=== PATIENT | female | born 1990 | race African-American/Black ===

== ENCOUNTER 2017-09-27 19:52 | Emergency (ER) | payer SELFPAY ==
[2017-09-27] MEDS ORDERED: Ibuprofen 800 MG TAB ONE (22:00)
== END 2017-09-28 00:23 | disposition home or self-care (01) ==
LOC: EDBD 19:52 → ERS 19:52
DX: J01.90 Acute sinusitis, unspecified (principal); F41.9 Anxiety disorder, unspecified; F32.9 Major depressive disorder, single episode, unspecified; F17.210 Nicotine dependence, cigarettes, uncomplicated
CPT/HCPCS: 99283

== ENCOUNTER 2017-10-20 10:46 | Emergency (ER) | payer SELFPAY ==
[2017-10-20 12:27] LABS: Bilirubin Negative (Negative); Blood, Urine Negative (Negative); Clarity CLEAR (Clear); Glucose, Urine (Dipstick) Negative (Negative); Leukocyte Negative (Negative); Nitrite Negative (Negative); Protein, Urine (Dipstick) Negative (Neg-Trace); Specific Gravity, Urine 1.024 (1.002-1.036); Urobilinogen 0.2 mg/dL (0.2-1.0); pH, Urine 6.5 (5.0-9.0)
--- NOTE | 2017-10-20 12:46 | RAD ---
FOUR VIEW RIGHT KNEE: Indication: Chronic pain. FINDINGS: No fracture or dislocation. No joint capsular distention. IMPRESSION: No acute osseous abnormality of the right knee. POS: [facility] [place]
== END 2017-10-20 13:02 | disposition home or self-care (01) ==
LOC: ERS 10:46
DX: S39.012A Strain of muscle, fascia and tendon of lower back, initial encounter (principal); S80.01XA Contusion of right knee, initial encounter; F41.9 Anxiety disorder, unspecified; F32.9 Major depressive disorder, single episode, unspecified; F17.210 Nicotine dependence, cigarettes, uncomplicated; W17.89XA Other fall from one level to another, initial encounter
CPT/HCPCS: 81003

== ENCOUNTER 2018-01-17 14:04 | Emergency (ER) | payer SELFPAY ==
[2018-01-17] MEDS ORDERED: Silver Sulfadiazine 1% Cream 50 GM JAR ONE (14:36)
== END 2018-01-17 14:45 | disposition home or self-care (01) ==
LOC: ERS 14:04
DX: T22.211A Burn of second degree of right forearm, initial encounter (principal); X12.XXXA Contact with other hot fluids, initial encounter
CPT/HCPCS: 99283

== ENCOUNTER 2019-05-25 14:08 | Emergency (ER) | payer SELFPAY | END 2019-05-25 15:20 | disposition home or self-care (01) | LOC: ERS 14:08 | DX: J30.9 Allergic rhinitis, unspecified (principal); Z71.6 Tobacco abuse counseling; F17.210 Nicotine dependence, cigarettes, uncomplicated; F32.9 Major depressive disorder, single episode, unspecified; F41.9 Anxiety disorder, unspecified | CPT/HCPCS: 99406 ==

== ENCOUNTER 2019-09-30 14:39 | Emergency (ER) | payer SELFPAY ==
[2019-09-30 15:18] LABS: Bilirubin Negative (Negative); Blood, Urine 2+ (Negative); Clarity Turbid (Clear); Glucose, Urine (Dipstick) Normal (Negative); Leukocyte 500 Leu/uL (Negative); Nitrite Negative (Negative); Protein, Urine (Dipstick) 50 mg/dL (Neg-Trace); Transitional Epithelial 0-3 HPF (None Seen); Urobilinogen Normal mg/dL (Less than 2); WBC/HPF Greater than 50 HPF (0-3)
[2019-09-30 15:20] LABS: Pregnancy Test - Urine (BHCG) Negative (Negative); Pregu Control Background? CLEAR/WHITE (CLR/WHITE); Pregu Control Bar Appear? YES (CONTROL BAR)
[2019-09-30 15:31] LABS: Bacteria/HPF 3+ HPF (None Seen)
[2019-09-30 15:56] LABS: Hemoglobin 14.7 g/dL (12.0-16.0); Mean Corpuscular HGB CONC 33.7 g/dL (32.0-36.0); Mean Corpuscular Hemoglobin 31.4 pg (27.0-31.0); Mean Corpuscular Volume 93.2 fL (78.0-98.0); Mean Platelet Volume 7.6 fL (7.4-10.4); Platelet Count 317 thou/uL (130-400); RBC Distribution Width 12.1 % (11.5-14.5); Red Blood Cell (RBC) Count 4.68 mill/uL (4.20-5.40)
[2019-09-30 16:09] LABS: Band 2 % (5-11); Lymphocytes 21 % (21-51); MDiff Complete? YES; Monocytes 6 % (0-10); Neutrophil 71 % (42-75); Platelet Morphology Comment Appears Adequate; RBC Morphology Normal
[2019-09-30 16:13] LABS: ALT (SGPT) 24 U/L (8-55); AST (SGOT) 16 U/L (5-34); Albumin 4.4 g/dL (3.5-5.0); Alkaline Phosphatase 65 U/L (40-110); Anion Gap 12 mmol/L (10-20); BUN (Urea Nitrogen) 14 mg/dL (7.0-18.7); Bilirubin, Total 0.4 mg/dL (0.2-1.2); Calc. Creatinine Clearance 0 mL/min (70-130); Calcium 9.5 mg/dL (7.8-10.44); Carbon Dioxide 26 mmol/L (22-29); Chloride 105 mmol/L (98-107); Estimated GFR-MDRD Greater than 90; Globulin 3.3 g/dL (2.4-3.5); Glucose 79 mg/dL (70-105); Lipase 38 U/L (8-78); Potassium 3.9 mmol/L (3.5-5.1); Protein, Total 7.7 g/dL (6.0-8.3); Sodium 139 mmol/L (136-145)
[2019-09-30] MEDS ORDERED: cefTRIAXone\\ROCEPHIN 2 GM VIAL ONE (16:22)
--- NOTE | 2019-09-30 18:08 | CT ---
CT of abdomen and pelvis: 09/30/2019 COMPARISON: None HISTORY: Right lower quadrant pain, elevated white blood cell count TECHNIQUE: Axial CT imaging at 5 mm intervals from lung bases through pubic symphysis with IV contras t. Coronal and sagittal reformatted imaging obtained. FINDINGS: The lack of oral contrast media limits assessment of the bowel. The imaged lung bases are u nremarkable. No free intraperitoneal air. The liver, spleen, pancreas, gallbladder, adrenal glands, and kidneys demonstrate no acute findings. Nonobstructing lower pole right renal stone noted anteriorly measuring approximately 3 mm. There is nonspecific small volume free fluid within the pelvic cul-de-sac. Imaged portions of the appendix appear grossly unremarkable. No focal area of bowel inflammatory change. No evidence for bowel obstruction. The urinary bladder wall demonstrates thickening and enhancement. Findings may signify cystitis in th e proper clinical setting. Correlation with urinalysis advised. The vascular structures of the abdomen/pelvis appear patent. No acute osseous abnormality. IMPRESSION: Thickening of the urinary bladder wall suspicious for cystitis. No evidence for appendici tis.
== END 2019-09-30 18:56 | disposition home or self-care (01) ==
LOC: ERS 14:39
DX: N30.90 Cystitis, unspecified without hematuria (principal); J45.909 Unspecified asthma, uncomplicated; F17.210 Nicotine dependence, cigarettes, uncomplicated; D57.1 Sickle-cell disease without crisis; F41.9 Anxiety disorder, unspecified; F32.9 Major depressive disorder, single episode, unspecified
CPT/HCPCS: 36415; 74177; 80053; 81003; 81015; 81025; 83690; 85025; 96361; 96365; J0696

== ENCOUNTER 2019-10-21 07:51 | Emergency (ER) | payer SELFPAY | END 2019-10-21 08:17 | disposition home or self-care (01) | LOC: ERS 07:51 | DX: K04.7 Periapical abscess without sinus (principal); F41.9 Anxiety disorder, unspecified; F32.9 Major depressive disorder, single episode, unspecified; J45.909 Unspecified asthma, uncomplicated; D57.1 Sickle-cell disease without crisis; F17.210 Nicotine dependence, cigarettes, uncomplicated | CPT/HCPCS: 99282 ==

== ENCOUNTER 2019-10-23 02:15 | Emergency (ER) | payer SELFPAY ==
[2019-10-23] MEDS ORDERED: HYDROcodone/Acetaminophen 5/325 mg Tablet ONE (02:59)
== END 2019-10-23 03:37 | disposition home or self-care (01) ==
LOC: ERS 02:15
DX: K00.6 Disturbances in tooth eruption (principal); J45.909 Unspecified asthma, uncomplicated; D57.1 Sickle-cell disease without crisis; F41.9 Anxiety disorder, unspecified; F32.9 Major depressive disorder, single episode, unspecified; F17.210 Nicotine dependence, cigarettes, uncomplicated; Z79.891 Long term (current) use of opiate analgesic; Z79.899 Other long term (current) drug therapy
CPT/HCPCS: 99283

== ENCOUNTER 2020-04-11 18:11 | Emergency (ER) | payer SELFPAY | END 2020-04-11 20:13 | disposition left against medical advice (07) | LOC: ERS 18:11 | DX: Z53.21 Procedure and treatment not carried out due to patient leaving prior to being seen by health care provider (principal) ==

== ENCOUNTER 2023-09-08 10:27 | Emergency (ER) | payer SELFPAY ==
[2023-09-08 11:29] LABS: #Eosinphils 0.3 thou/uL (0.0-0.7); %Basophils 0.3 % (0.0-1.0); %Eosinophils 2.3 % (0.0-10.0); %Lymphocytes 27.2 % (21.0-51.0); %Monocytes 7.2 % (0.0-10.0); %Neutrophils 62.8 % (42.0-75.0); Hematocrit 38.2 % (36.0-47.0); Hemoglobin 12.8 g/dL (12.0-16.0); Mean Corpuscular HGB CONC 33.5 g/dL (32.0-36.0); Mean Corpuscular Hemoglobin 30.5 pg (27.0-31.0); Mean Platelet Volume 9.4 fL (7.4-10.4); Platelet Count 321 10x3/uL (130-400); White Blood Cell (WBC) Count 14.3 10x3/uL (4.8-10.8)
[2023-09-08 11:52] LABS: ALT (SGPT) 25 U/L (8-55); AST (SGOT) 24 U/L (5-34); Albumin 3.9 g/dL (3.5-5.0); Alkaline Phosphatase 60 U/L (40-110); Anion Gap 13 mmol/L (10-20); BUN (Urea Nitrogen) 10 mg/dL (7.0-18.7); Bilirubin, Total 0.3 mg/dL (0.2-1.2); Calc. Creatinine Clearance 0 mL/min (70-130); Calcium 9.1 mg/dL (7.8-10.44); Carbon Dioxide 21 mmol/L (22-29); Chloride 108 mmol/L (98-107); Estimated GFR 120; Globulin 3.1 g/dL (2.4-3.5); Glucose 90 mg/dL (70-105); Potassium 3.9 mmol/L (3.5-5.1); Sodium 138 mmol/L (136-145)
[2023-09-08] MEDS ORDERED: Ondansetron ODT 4 MG TAB ONE (12:00)
[2023-09-08] MEDS ORDERED: Milk Of Magnesia 30 ML UDCUP ONE (12:00)
[2023-09-08 12:21] LABS: BHCG - Serum Negative (NEGATIVE); Pregs Control Background? CLEAR/WHITE (CLR/WHITE); Pregs Control Bar Appear? YES (CONTROL BAR)
== END 2023-09-08 13:45 | disposition home or self-care (01) ==
LOC: ERS 10:27
DX: K59.00 Constipation, unspecified (principal); R11.2 Nausea with vomiting, unspecified; F17.210 Nicotine dependence, cigarettes, uncomplicated
CPT/HCPCS: 36415; 80053; 83690; 84703; 85025; 99284; Q0162

== ENCOUNTER 2023-10-23 19:30 | Inpatient (IN) | payer SELFPAY ==
[2023-10-23] MEDS ORDERED: Ketorolac Tromethamine 30 MG (1 mL) VIAL ONE (20:16)
[2023-10-23 20:49] LABS: Bacteria/HPF None Seen HPF (None Seen); Bilirubin Negative (Negative); Blood, Urine 1+ (Negative); CAUTI Indications for Culture Acute Hematuria; Clarity Extra Turbid (Clear); Glucose, Urine (Dipstick) Normal (Negative); Ketone, Urine Negative (Negative); Leukocyte Negative Leu/uL (Negative); Nitrite Negative (Negative); Protein, Urine (Dipstick) Negative (Neg-Trace); RBC/HPF None Seen HPF (0-3); Specific Gravity, Urine 1.016 (1.002-1.036); Urobilinogen Normal mg/dL (Less than 2); WBC/HPF None Seen HPF (0-3); pH, Urine 7.5 (5.0-9.0)
[2023-10-23 20:51] LABS: Pregnancy Test - Urine (BHCG) Negative (Negative); Pregu Control Background? CLEAR/WHITE (CLR/WHITE); Pregu Control Bar Appear? YES (CONTROL BAR); Specific Gravity 1.016 (1.002-1.036); Urine Culture Reflex No No
[2023-10-23] MEDS ORDERED: Dicyclomine 20 MG TAB ONE (21:28)
[2023-10-23 21:59] LABS: #Basophils 0.1 thou/uL (0.0-0.2); #Eosinphils 0.1 thou/uL (0.0-0.7); #Neutrophils 17.4 thou/uL (1.40-6.50); %Basophils 0.3 % (0.0-1.0); %Eosinophils 0.6 % (0.0-10.0); %Lymphocytes 13.9 % (21.0-51.0); %Monocytes 4.6 % (0.0-10.0); %Neutrophils 80.1 % (42.0-75.0); Hemoglobin 13.5 g/dL (12.0-16.0); Mean Corpuscular HGB CONC 33.8 g/dL (32.0-36.0); Mean Corpuscular Hemoglobin 30.5 pg (27.0-31.0); Mean Corpuscular Volume 90.5 fl (78.0-98.0); Platelet Count 390 10x3/uL (130-400); RBC Distribution Width 14.7 % (11.5-14.5); Red Blood Cell (RBC) Count 4.42 mill/uL (4.20-5.40); White Blood Cell (WBC) Count 21.7 10x3/uL (4.8-10.8)
[2023-10-23 22:27] LABS: ALT (SGPT) 34 U/L (8-55); AST (SGOT) 24 U/L (5-34); Albumin 3.9 g/dL (3.5-5.0); Alkaline Phosphatase 54 U/L (40-110); Anion Gap 11 mmol/L (10-20); BUN (Urea Nitrogen) 8 mg/dL (7.0-18.7); Bilirubin, Total 0.3 mg/dL (0.2-1.2); Calc. Creatinine Clearance 0 mL/min (70-130); Carbon Dioxide 26 mmol/L (22-29); Chloride 105 mmol/L (98-107); Estimated GFR 120; Globulin 2.7 g/dL (2.4-3.5); Glucose 81 mg/dL (70-105); Lipase 42 U/L (8-78); Potassium 4.1 mmol/L (3.5-5.1); Protein, Total 6.6 g/dL (6.0-8.3); Sodium 138 mmol/L (136-145)
[2023-10-24 03:26] VITALS: BMI 32.8
[2023-10-24] MEDS ORDERED: Sodium Chloride 0.9% 1,000 ML IV SCH (03:45)
[2023-10-24] MEDS ORDERED: Morphine 2 MG/ML VIAL SLOW IVP PRN (03:59)
[2023-10-24] MEDS ORDERED: Morphine 4 MG/ML VIAL SLOW IVP PRN (04:00)
[2023-10-24] MEDS ORDERED: Ondansetron PF 4 MG/2 ML Vial IVP PRN (04:00)
[2023-10-24] MEDS: Sodium Chloride 0.9% 1,000 ML IV SCH ×2 (04:20→20:32)
[2023-10-24] MEDS ORDERED: Clindamycin/D5W 900 MG in Premix 1 BAG IVPB SCH (07:15)
[2023-10-24] MEDS ORDERED: Clindamycin/D5W 900 mg/50 ml Premix Bag ONE (07:50)
[2023-10-24] MEDS ORDERED: EPINEPHrine 1 MG/ML VIAL ONE (07:51)
[2023-10-24] MEDS ORDERED: Bupivacaine 0.25% HCL 30 ML VIAL ONE (07:51)
[2023-10-24] MEDS ORDERED: fentaNYL PF 100 MCG/2 ML SYRINGE ONE (08:03)
[2023-10-24] MEDS ORDERED: PROPOFOL 40 ML ONE (08:03)
[2023-10-24] MEDS ORDERED: Rocuronium Bromide 10 MG/ML (10ML VIAL) ONE (08:04)
[2023-10-24] MEDS ORDERED: Ondansetron PF 4 MG/2 ML Vial ONE (08:04)
[2023-10-24] MEDS ORDERED: Dexamethasone 20 MG/5 ML VIAL ONE (08:04)
[2023-10-24] MEDS ORDERED: Dexmedetomidine 200 MCG/2 ML VIAL ONE (08:09)
[2023-10-24] MEDS ORDERED: Promethazine HCl 25 MG/ML VIAL IM PRN (08:43)
[2023-10-24] MEDS ORDERED: Ondansetron HCl/PF 4 MG/2 ML Vial IVP PRN (08:43)
[2023-10-24] MEDS ORDERED: SUGAMMADEX SODIUM 200 MG/2 ML VIAL ONE (08:47)
[2023-10-24] MEDS ORDERED: Ketorolac Tromethamine 30 MG (1 mL) VIAL ONE (09:17)
[2023-10-24] MEDS: Polymyxin B Sulf/Trimethoprim 10 ML OPHTH DROPS L EYE SCH ×3 (14:03→20:44)
[2023-10-24] MEDS: Proparacaine 0.5% Opth 15 ML BOT L EYE PRN ×4 (14:04→22:37)
[2023-10-24] MEDS ORDERED: Ibuprofen 600 MG TAB PO PRN (18:28)
[2023-10-24] MEDS: traMADol HCl 50 MG TAB PO PRN (20:44)
[2023-10-25] MEDS: Ketorolac Tromethamine 30 MG (1 mL) VIAL IM PRN ×2 (00:02→10:44)
[2023-10-25] MEDS: Sodium Chloride 0.9% 1,000 ML IV SCH ×2 (00:04→10:25)
[2023-10-25 08:04] LABS: #Monocytes 1.8 thou/uL (0.11-0.59); #Neutrophils 16.1 thou/uL (1.40-6.50); %Basophils 0.2 % (0.0-1.0); %Eosinophils 0.1 % (0.0-10.0); %Lymphocytes 19.5 % (21.0-51.0); %Neutrophils 71.6 % (42.0-75.0); Hematocrit 33.4 % (36.0-47.0); Hemoglobin 11.3 g/dL (12.0-16.0); Mean Corpuscular HGB CONC 33.8 g/dL (32.0-36.0); Mean Corpuscular Hemoglobin 30.3 pg (27.0-31.0); Mean Corpuscular Volume 89.5 fl (78.0-98.0); Mean Platelet Volume 9.7 fL (7.4-10.4); Platelet Count 321 10x3/uL (130-400); RBC Distribution Width 14.7 % (11.5-14.5); Red Blood Cell (RBC) Count 3.73 mill/uL (4.20-5.40); White Blood Cell (WBC) Count 22.5 10x3/uL (4.8-10.8)
[2023-10-25 08:23] LABS: ALT (SGPT) 41 U/L (8-55); AST (SGOT) 34 U/L (5-34); Albumin 3.2 g/dL (3.5-5.0); Alkaline Phosphatase 44 U/L (40-110); Anion Gap 10 mmol/L (10-20); BUN (Urea Nitrogen) 9 mg/dL (7.0-18.7); Bilirubin, Total 0.3 mg/dL (0.2-1.2); Calc. Creatinine Clearance 157 mL/min (70-130); Calcium 8.4 mg/dL (7.8-10.44); Carbon Dioxide 21 mmol/L (22-29); Chloride 109 mmol/L (98-107); Estimated GFR 120; Globulin 2.1 g/dL (2.4-3.5); Glucose 81 mg/dL (70-105); Potassium 3.6 mmol/L (3.5-5.1); Protein, Total 5.3 g/dL (6.0-8.3); Sodium 136 mmol/L (136-145)
[2023-10-25] MEDS: traMADol HCl 50 MG TAB PO PRN (08:47)
[2023-10-25] MEDS: Polymyxin B Sulf/Trimethoprim 10 ML OPHTH DROPS L EYE SCH ×2 (08:48→13:31)
[2023-10-25 15:41] VITALS: BP 106/68; TEMP 97.6
[2023-10-25] MEDS: Proparacaine 0.5% Opth 15 ML BOT L EYE PRN (16:31)
== END 2023-10-25 16:45 | disposition home or self-care (01) | DRG 419 ==
LOC: ERS 19:30 → ERHOLD 23:26 → SURG A 10-24 03:11
PROVIDERS: ADMIT Surgery; ATTEND Surgery
PROC: 0FT44ZZ Resection of Gallbladder, Percutaneous Endoscopic Approach (ICD-10-PCS; principal; 2023-10-24)
DX: K80.00 Calculus of gallbladder with acute cholecystitis without obstruction (principal); Z88.5 Allergy status to narcotic agent; Z88.0 Allergy status to penicillin; Z98.890 Other specified postprocedural states; F41.9 Anxiety disorder, unspecified; F32.A Depression, unspecified; F17.210 Nicotine dependence, cigarettes, uncomplicated; H57.12 Ocular pain, left eye
CPT/HCPCS: 36415; 76705; 80053; 81001; 81025; 83690; 85025; 88304; 96361; 96374; C1713; J0171; J1100; J1885; J2405; J2704; J3490; J7050; S0020

== ENCOUNTER 2024-03-24 09:54 | Outpatient (CLI) | payer OTHER | END 2024-03-24 09:55 | disposition home or self-care (01) | LOC: BICRAD 09:54 | PROVIDERS: ATTEND Preventive Medicine Occupational Medicine | DX: M51.26 Other intervertebral disc displacement, lumbar region (principal) | CPT/HCPCS: 72100 ==